=== PATIENT | female | born 1990 | race Two or more races ===

== ENCOUNTER 2024-07-28 13:37 | Outpatient (AMB) | payer MEDICAID, SELFPAY ==
--- NOTE | 2024-07-28 14:13 | GYNCLNT_ITS ---
Vital Signs 07/28/24 14:27 Height 1.57 m Height Method Stated Weight 81.363 kg Weight Measurement Method Standing Scale BMI 33.0 BP 112/74 Blood Pressure Source Automatic Cuff Blood Pressure Location Left Upper Arm Position Sitting Respiration 18 Pulse 80 Pulse Source Monitor Temp 96.8 F Temp Source Oral Pulse Oximetry (%) 99 Oxygen Delivery Method Room Air Allergies/Home Meds Allergies & Medications Allergies ciprofloxacin Allergy (Intermediate, Verified 07/28/24 14:28) Rash Medication Reconciliation vit no.133-ferrous fumarate 28 mg-folic acid 800 mcg tablet () 1 tab PO QDAY 08/03/18 [History Confirmed 08/04/18] ibuprofen 600 mg tablet 600 mg PO QID PRN pain #30 tabs 08/05/18 [Rx] condoms - male #10 ea 07/28/24 [Rx] desogestrel 0.15 mg-ethinyl estradiol 0.03 mg tablet (Apri) 1 tab PO QDAY 30 days #84 tabs 07/28/24 [Rx] Intake Visit Data Collection New Patient or Established: Established Patient (seen at [facility] within 3 years) Reason for Visit:: 6 week post visit Seen by Clinical Staff ONLY (RN/MA): No 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: No Do You Feel Safe at Home: No Authorities Contacted: N/A PCP or OBGYN visit in last 3 months: No Hx Now: No Are you currently on any form of Control: No Pain Present Currently: No Pain Scale Used: Griffiths-Frias/Numerical Pain scale:: 0 Smoking Status Smoking Status: Never smoker Complaint Clerk history Complaint Clerk History Menstrual regularity: regular Flow: normal Monthly: No How many days does period last: 5 Menopausal: No Currently sexually active: Yes Questionnaires Covid-19 Vaccine Questionnaire Has patient been vacinated for Covid-19 Have you been vacinated for Covid-19: No PHQ-9 PHQ-2 Over the last 2 weeks, how often have you been bothered by any of the following problems? 1. Little interest or pleasure in doing things: not at all 2. Feeling down, depressed, or hopeless: not at all Total score: 0 PHQ-9 3. Trouble falling or staying asleep, or sleeping too much: Not at all 4. Feeling tired or having little energy: Not at all 5. Poor appetite or overeating: Not at all 6. Feeling bad about yourself - or that you are a failure or have let yourself or your family down: Not at all 7. Trouble concentrating on things, such as reading the newspaper or watching television: Not at all 8. Moving or speaking so slowly that other people could have noticed? - Or the opposite - being so fidgety or restless that you have been moving around a lot more than usual: not at all 9. Thoughts that you would be better off or of hurting yourself in some way: Not at all Total score: 0 If you checked off any problems, how difficult have these problems made it for you to do your work, take care of things at home, or get along with other people?: not difficult at all Source: Developed by Drs. Nito Rooney, Tenisha Arguelles, Roney Pate and colleagues, with an educational oliver from [employer]. Depression screen completed yes Social History Living Situation History Marital Status: Single Lives With: Family Housing: House Tobacco History Smoking Status: Never smoker Alcohol History Alcohol Intake: Never Domestic Abuse History Do You Feel Safe at Home: No Past Medical History Past Medical History Have you ever been diagnosed with any of the following: Cardiology Problems Congestive Heart Failure: No Respiratory Problems Chronic Obstructive Pulmonary Disease (COPD): No Asthma: No Bronchitis: No Emphysema: No Pneumonia: No Pulmonary Fibrosis: No Tuberculosis: No Pulmonary Embolism: No Pulmonary Edema: No Sleep Apnea: No Stomache/Intestinal Problems Hepatitis: No Colorectal Cancer: No Genital/Urinary Problems Renal Disease: No Reproductive Problems Breast Cancer: No Endometriosis: No Genital Herpes: No Gonorrhea: No Pelvic Inflammatory Disease: No Previous Pregnancies: Yes Syphilis: No Uterine Prolapse: No Musculoskeletal Problems Bone Cancer: No Carpal Tunnel Syndrome: No Head,Eye,Nose,Throat Problems Cataracts: No Endocrine Problems Diabetes Mellitus Type 1: No Diabetes Mellitus Type 2: No Blood Problems Anemia: No Leukemia: No Hemophilia: No Thalassemia: No Sickle Cell Disease: No Clotting Problems: No Psychologic Problems Anxiety: Yes Other Problems Hospitalization: No Down Syndrome: No Developmental Delay: No Shingles: No Falls: No Blood Transfusions: No Blood Transfusion Reaction: No Anesthesia Reactions: No Organ Transplant: No Chemotherapy: No Radiation Therapy: No Hyperbaric Therapy: No MRSA: No VRSA: No Vancomycin-Resistant Enterococci: No Human Immunodeficiency Virus (HIV): No Chicken Pox: No Measles: No Mumps: No Rubella (Tajik Measles): No Pertussis: No Clostridium Difficile: No Cervical Cancer: No Lung Cancer: No Ovarian Cancer: No Surgical History Hysterectomy: No Thyroidectomy: No History of Present Illness HPI Narrative 34-year-old G2, P2 here for 6-week follow-up. Patient had a vaginal delivery June 18, 2024. Patient was transferred to the [facility] care because of abnormal echo. The was uneventful. Baby did well and was discharged home with mom and dad. Patient is bottlefeeding. She is happy denies depression. She has good support at home. They have not resumed sexual intercourse yet. 6-year-old sibling is doing well and adjusting. Did not desires to start on control pills. No further complaints expressed. Review of Systems Review of Systems Systems Reviewed: All systems reviewed, normal except as documented Exam Narrative Physical exam: breast soft, non tender, symmetrical. no sign of mastitis, uterus well involute d. non tender, perineum intact, negative homans, 2+ dtr General Limitations: no limitations General Appearance: alert, in no apparent distress, comfortable, cooperative, healthy appearing, well developed and well groomed Chest Chest inspection: Present normal inspection and symmetric chest wall rise Resp Respiratory exam: Present normal lung sounds bilaterally Card Cardiovascular exam: Present regular rate, normal rhythm and normal heart sounds Abdominal Abdominal exam: Present soft (uterus well involuted, below umbilicus, non tender) and normal bowel sounds External exam: Present normal external exam (perium intact, no laceration, no discharge) Psych Psychiatric exam: Present normal affect and normal mood Assessment & Plan Diagnosis / Problem List (1) 6 weeks follow-up: Status: Acute Plan: normal 6 week post exam, continue multivitamin . start Apri x6. condom x 2 week, review method and side effect, increase fluid, discuss diet and exercise. rtc 6 month for refill. Discuss ACHES Additional Plan Follow Up: 6 Months (f/u control) Office Procedures OB Clinic LOC & Office Proc's Nursing/Assessment Patient Status: Established Patient OB Clinic Nursing Assessment: BP Monitoring, Medication Reconciliation, Update PMH in EMR and Vital Signs OB Clinic Coordination of Care: Consent,records obtained, informed consent, Education Simp Pt/Fam, Lab and Imaging orders and Staff clarify orders Established Patient Charge Established Patient Point Assignment: 90 Established Patient Point Charge: EP Level 3 (80-115)
[2024-07-28 14:27] VITALS: BP 112/74; PULSE 80; RESP 18; TEMP 36; O2SAT 99; BMI 33.0
== END 2024-07-28 14:28 | disposition home or self-care (01) ==
LOC: HODSOBC 13:37
PROVIDERS: Supervising Provider Advanced Practice Midwife; Visit Provider Advanced Practice Midwife
DX: Z39.2 Encounter for routine postpartum follow-up (principal)
CPT/HCPCS: 99213; G0463

== ENCOUNTER 2025-01-26 11:11 | Outpatient (AMB) | payer MEDICAID, SELFPAY ==
[2025-01-26 11:17] VITALS: BP 115/76; PULSE 105; RESP 16; TEMP 36.2; O2SAT 97; BMI 33.3
--- NOTE | 2025-01-26 11:17 | AMB.OBPP ---
Vital Signs 01/26/25 11:17 Height 1.57 m Height Method Stated Weight 82.1 kg Weight Measurement Method Standing Scale BMI 33.3 BP 115/76 Blood Pressure Source Automatic Cuff Blood Pressure Location Left Upper Arm Position Sitting Respiration 16 Pulse 105 H Pulse Source Monitor Temp 97.2 F Temp Source Oral Pulse Oximetry (%) 97 Oxygen Delivery Method Room Air Allergies/Home Meds Allergies & Medications Allergies ciprofloxacin Allergy (Intermediate, Verified 01/26/25 11:19) Rash Medication Reconciliation vits no.133-ferrous fumarate 28 mg-folic acid 800 mcg tablet () 1 tab PO QDAY 08/03/18 [History Confirmed 01/26/25] ibuprofen 600 mg tablet 600 mg PO QID PRN pain #30 tabs 08/05/18 [Rx Confirmed 01/26/25] condoms - male #10 ea 07/28/24 [Rx Confirmed 01/26/25] desogestrel 0.15 mg-ethinyl estradiol 0.03 mg tablet (Apri) 1 tab PO QDAY 30 days #84 tabs 07/28/24 [Rx Confirmed 01/26/25] Intake Visit Data Collection New Patient or Established: Established Patient (seen at [facility] within 3 years) Reason for Visit:: PP Seen by Clinical Staff ONLY (RN/MA): No Equipment Sterilizer Required: No Do You Feel Safe at Home: Yes Authorities Contacted: N/A PCP or OBGYN visit in last 3 months: Yes Date of Last PCP or OBGYN visit: 07/28/24 Hx Now: No Are you currently on any form of Control: No Pain Present Currently: No Pain Scale Used: Griffiths-Frias/Numerical Pain scale:: 0 Smoking Status Smoking Status: Never 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 History Past Medical History: No Hx Neurological Disorders, No Hx Breast Cancer, No Hx Cardiac Disorders, No Hx Blood Disorders, No Hx Anemia, No Hx Gastrointestinal Disorders, No Hx Renal Disease, No Hx Diabetes Mellitus Type 1, No Hx Diabetes Mellitus Type 2, No Hx Tubal Ligation and No Hx Hysterectomy Questionnaires Covid-19 Vaccine Questionnaire Has patient been vacinated for Covid-19 Have you been vacinated for Covid-19: Yes Social History Living Situation History Lives With: Family Housing: House Tobacco History Smoking Status: Never smoker Second Hand Smoke Exposure: No Alcohol History Alcohol Intake: Never Domestic Abuse History Do You Feel Safe at Home: Yes EPDS - PP Depression Screening Purlear Pospartum Depression Screen I have been able to laugh and see the funny side of things: (0) As much as I always could I have looked forward with enjoyment to things: (0) As much as I ever did I have blamed myself unnecessarily when things went wrong: (0) No, never I have been anxious or worried for no good reason: (0) No, not at all I have felt scared or panicky for no very good reason: (0) No, not at all Things have been getting on top of me: (0) No, I have been coping as well as ever I have been so unhappy that I have had difficulty sleeping: (0) No, not at all I have felt sad or miserable: (0) No, not at all I have been so unhappy that I have been crying: (0) No, never The thought of harming myself has occurred to me: (0) Never Total Score: EPDS Score: Referral is indicated for score of 9 or more, suicidal, or if provider believes patient is depressed regardless of score.: 0 EPDS completed yes Office Procedures OBC Clinic LOC & Office Proc's Nursing/Assessment Patient Status: Established Patient OB Clinic Nursing Assessment: Medication Reconciliation, Update PMH in EMR and Vital Signs OB Clinic Coordination of Care: Consent,records obtained, informed consent, Education Simp Pt/Fam and Staff clarify orders Special Needs: Heart tones Established Patient Charge Established Patient Point Assignment: 90 Established Patient Point Charge: EP Level 3 (80-115)
--- NOTE | 2025-01-26 11:35 | GYNCLNT_ITS ---
Vital Signs 01/26/25 11:17 01/26/25 11:36 Height 1.57 m Height Method Stated Weight 82.1 kg Weight Measurement Method Standing Scale BMI 33.3 BP 115/76 115/76 Blood Pressure Source Automatic Cuff Blood Pressure Location Left Upper Arm Position Sitting Respiration 16 16 Pulse 105 H 105 H Pulse Source Monitor Temp 97.2 F 97.2 F Temp Source Oral Pulse Oximetry (%) 97 97 Oxygen Delivery Method Room Air Allergies/Home Meds Allergies & Medications Allergies ciprofloxacin Allergy (Intermediate, Verified 01/26/25 11:19) Rash Medication Reconciliation vits no.133-ferrous fumarate 28 mg-folic acid 800 mcg tablet () 1 tab PO QDAY 08/03/18 [History Confirmed 01/26/25] ibuprofen 600 mg tablet 600 mg PO QID PRN pain #30 tabs 08/05/18 [Rx Confirmed 01/26/25] condoms - male #10 ea 07/28/24 [Rx Confirmed 01/26/25] desogestrel 0.15 mg-ethinyl estradiol 0.03 mg tablet (Apri) 1 tab PO QDAY 30 days #84 tabs 07/28/24 [Rx Confirmed 01/26/25] Intake Visit Data Collection New Patient or Established: Established Patient (seen at [facility] within 3 years) Reason for Visit:: BC Seen by Clinical Staff ONLY (RN/MA): No 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: No Do You Feel Safe at Home: Yes Authorities Contacted: N/A PCP or OBGYN visit in last 3 months: No Hx Now: No Are you currently on any form of Control: No Last menstrual period: 01/26/25 Pain Present Currently: No Pain Scale Used: Griffiths-Frias/Numerical Pain scale:: 0 Smoking Status Smoking Status: Never smoker 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 Menstrual regularity: regular Flow: normal Monthly: Yes How many days does period last: 4 Menopausal: No Currently sexually active: Yes If not currently sexually active, have you ever been sexually active: No 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 1. Little interest or pleasure in doing things: not at all 2. Feeling down, depressed, or hopeless: not at all Total score: 0 PHQ-9 3. Trouble falling or staying asleep, or sleeping too much: Not at all 4. Feeling tired or having little energy: Not at all 5. Poor appetite or overeating: Not at all 6. Feeling bad about yourself - or that you are a failure or have let yourself or your family down: Not at all 7. Trouble concentrating on things, such as reading the newspaper or watching television: Not at all 8. Moving or speaking so slowly that other people could have noticed? - Or the opposite - being so fidgety or restless that you have been moving around a lot more than usual: not at all 9. Thoughts that you would be better off or of hurting yourself in some way: Not at all Total score: 0 If you checked off any problems, how difficult have these problems made it for you to do your work, take care of things at home, or get along with other people?: not difficult at all Source: Developed by Drs. Nito Rooney, Tenisha Arguelles, Roney Pate and colleagues, with an educational oliver from [employer]. Depression screen completed yes Social History Living Situation History Marital Status: Single Lives With: Family Housing: House Tobacco History Smoking Status: Never smoker Second Hand Smoke Exposure: No Alcohol History Alcohol Intake: Never Domestic Abuse History Do You Feel Safe at Home: Yes History of Present Illness HPI Narrative 34 yo for preconceptual counseling and f/u on history. last child is 7 month old. bottle. patient was an induction at [facility] because baby had a larg mumur. baby spent 4 days in NICU and discharged hoe. Doing well no further cardiac issue. patient was concerned about increased risk of hemorrhage. patient had paost hemeorrhage with last , did not need blood transfusion. is not anemic now. No PMH,no social habit, no surgery. last pap 1 year/normal. 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 Review of Systems Review of Systems Systems Reviewed: All systems reviewed, normal except as documented Exam General Limitations: no limitations General Appearance: alert, in no apparent distress, comfortable, cooperative, healthy appearing, well developed and well groomed Head Head exam: atraumatic, normocephalic and normal inspection Neck Neck exam: Present normal inspection, full ROM and trachea midline Chest Chest inspection: Present normal inspection and symmetric chest wall rise Resp Respiratory exam: Present normal lung sounds bilaterally Card Cardiovascular exam: Present regular rate, normal rhythm and normal heart sounds Abdominal Abdominal exam: Present soft and normal bowel sounds Psych Psychiatric exam: Present normal affect and normal mood Office Procedures OBC Clinic LOC & Office Proc's Nursing/Assessment Patient Status: Established Patient OB Clinic Nursing Assessment: Medication Reconciliation, Update PMH in EMR and Vital Signs OB Clinic Coordination of Care: Consent,records obtained, informed consent, Educ ation Simp Pt/Fam and Staff clarify orders Special Needs: Heart tones Established Patient Charge Established Patient Point Assignment: 90 Established Patient Point Charge: EP Level 3 (80-115) Assessment & Plan Diagnosis / Problem List (1) Encounter for preconception consultation: Status: Acute Plan spent 15 minute discussing patient history. We discussed the increased risk of hemorrage if there was a previous event. discussed spacing, discussed dieat and weight loss. Eat clean, increase exercise. reviewed condom for contraception and compliance/effectiveness. rtc as needed Additional Plan Follow Up: 1 Year (f/u on contraception)
[2025-01-26 11:36] VITALS: BP 115/76; PULSE 105; RESP 16; TEMP 36.2; O2SAT 97
== END 2025-01-26 11:48 | disposition home or self-care (01) ==
LOC: HODSOBC 11:11
PROVIDERS: Supervising Provider Advanced Practice Midwife; Visit Provider Advanced Practice Midwife
DX: Z31.69 Encounter for other general counseling and advice on procreation (principal); Z87.59 Personal history of other complications of pregnancy, childbirth and the puerperium
CPT/HCPCS: 99213; G0463